=== PATIENT | female | born 1985 | race Asian ===

== ENCOUNTER 2019-12-29 12:12 | Outpatient (CLI) | payer OTHER, SELFPAY ==
[2019-12-29 13:05] LABS: Basophils Percent Auto 0.5 % (0.2-1.2); Eosinophils Absolute Auto 0.2 K/mm3 (0-0.3); Eosinophils Percent Auto 3.4 % (0-4.4); Immature Granulocyte Absolute 0.01 K/mm3 (0.00-0.031); Immature Granulocyte Percent A 0.2 % (0-0.5); Lymphocytes Absolute Auto 2.01 K/mm3 (0.9-3.2); Lymphocytes Percent Auto 32.7 % (18.3-44.2); Mean Corpuscular HGB Conc 32.5 g/dl (32-36); Mean Corpuscular Hemoglobin 29.6 pg (26-34); Mean Corpuscular Volume 91.1 fl (80-100); Mean Platelet Volume 9.5 fl (7.4-10.4); Monocytes Absolute Auto 0.3 K/mm3 (0.1-0.6); Monocytes Percent Auto 4.6 % (2.6-8.5); Neutrophils Absolute Auto 3.6 K/mm3 (1.3-6.7); Neutrophils Percent Auto 58.6 % (45.5-73.1); Platelet Count Result 238 k/mm3 (150-375); Red Blood Count 4.39 M/mm3 (4.2-5.4); Red Cell Distribution Width 12.8 % (11.5-14.5); White Blood Count 6.2 K/mm3 (4.5-10.0)
[2019-12-29 13:21] LABS: Alanine Aminotransferase 11 U/L (4-35); Alkaline Phosphatase 54 U/L (38-126); Aspartate Amino Transferase 19 U/L (14-36); Bilirubin,Total 0.2 mg/dL (0.2-1.3); Blood Urea Nitrogen 14 mg/dL (7-17); Calcium 8.5 mg/dL (8.4-10.2); Carbon Dioxide 27 mmol/L (22-30); Chloride 105 mmol/L (98-107); Estimated Glomerular Filt Rate > 60; Glucose 98 mg/dL (65-105); Potassium 3.7 mmol/L (3.4-5.0); Sodium 142 mmol/L (137-145)
[2019-12-29 13:51] LABS: Thyroid Stimulating Hormone 0.987 uIU/mL (0.465-4.680)
[2020-01-04 07:01] LABS: Vitamin D 1,25 (OH)2 Total 97 pg/mL (18-72); Vitamin D2 1,25 (OH)2 34 pg/mL; Vitamin D3 1,25 (OH)2 63 pg/mL
== END 2019-12-29 12:13 | disposition home or self-care (01) ==
PROVIDERS: PCP Family Medicine; Visit Provider Family Medicine
DX: E55.9 Vitamin D deficiency, unspecified (principal); R03.0 Elevated blood-pressure reading, without diagnosis of hypertension; K59.00 Constipation, unspecified
CPT/HCPCS: 36415; 80053; 82652; 84443; 85025

== ENCOUNTER 2020-03-29 16:38 | Outpatient (CLI) | payer OTHER, SELFPAY ==
--- NOTE | ~2020-03-29 | CT_ITS ---
EXAMINATION: CT abdomen pelvis w con INDICATION: Unspecified abdominal pain, constipation TECHNIQUE: Computed tomographic images of the abdomen and pelvis were obtained after the administrati on of 100 cc of Omnipaque 350 intravenous contrast. The dose-length product (DLP) was 440.63 mGy-cm. Automated exposure control and iterative reconstruction technique were employed. COMPARISON: None available FINDINGS: The lung bases are clear. The heart size is normal. There is a 1 cm cyst in the right hepat ic lobe. The spleen, pancreas, and adrenal glands are normal. The gallbladder is surgically absent. T here is mild enlargement of the common bile duct and central intrahepatic ducts which is likely due t o post cholecystectomy state. The right kidney is unremarkable. There is a 3 mm cyst of the left kidn ey. No pathologically enlarged abdominal or pelvic lymph nodes are identified. There is no free intra peritoneal gas or evidence of bowel obstruction. The appendix is normal. There is a greater than norm al number of fluid-filled, nondistended small bowel loops. IMPRESSION: 1. CT findings suggestive of enteritis. Reviewed, dictated and finalized at location A.
== END 2020-03-29 16:39 | disposition home or self-care (01) ==
LOC: ANHIMG 16:47
PROVIDERS: PCP Family Medicine; Visit Provider Family Medicine
DX: R10.9 Unspecified abdominal pain (principal); K59.00 Constipation, unspecified
CPT/HCPCS: 74177; Q9967

== ENCOUNTER 2020-09-05 12:13 | Outpatient (CLI) | payer OTHER, SELFPAY ==
--- NOTE | ~2020-09-05 | US_ITS ---
EXAMINATION: US pelvic complete w TV DATE: 09/05/2020 12:57 INDICATION: Pelvic pain Comparison:Ultrasound dated 05/14/2019 TECHNIQUE: Multiple transabdominal and endovaginal sonographic images of the pelvis performed. FINDINGS: The uterus measures 8.6 x 4.5 x 4.9 cm. IUD visualized in the endometrium at the fundus. Th e endometrial complex measures 5 mm. The right ovary measures 2.7 x 2.2 x 2.3 cm and the left ovary measures 2.3 x 2.1 x 1.6 cm. There ar e small follicles in each ovary. There is free fluid in the pelvis. There are no abnormal masses seen on either side. IMPRESSION: 1. Unremarkable pelvic ultrasound. Reviewed, dictated and finalized at location A.
== END 2020-09-05 12:14 | disposition home or self-care (01) ==
PROVIDERS: PCP Family Medicine; Visit Provider Obstetrics & Gynecology
DX: R10.2 Pelvic and perineal pain (principal)
CPT/HCPCS: 76830; 76856

== ENCOUNTER 2020-10-01 17:11 | Outpatient (CLI) | payer OTHER, SELFPAY ==
[2020-10-01 18:21] LABS: Thyroid Stimulating Hormone 0.771 uIU/mL (0.465-4.680)
[2020-10-05 14:21] LABS: DHEA-Sulfate 234 mcg/dL (23-266)
[2020-10-06 12:54] LABS: FSH 4.8 mIU/mL (***); LH 6.8 mIU/mL (***); Progesterone 3.8 ng/mL (***); Prolactin 5.7 ng/mL (***)
[2020-10-06 14:27] LABS: Testosterone Free 5.9 pg/mL (0.1-6.4); Testosterone Total 36 ng/dL (2-45)
[2020-10-09 19:27] LABS: Estradiol, Ultrasensitive 46 pg/mL
== END 2020-10-01 17:12 | disposition home or self-care (01) ==
LOC: ANHLAB 17:13
PROVIDERS: PCP Family Medicine; Visit Provider Obstetrics & Gynecology
DX: N92.6 Irregular menstruation, unspecified (principal)
CPT/HCPCS: 36415; 82627; 82670; 83001; 83002; 84144; 84146; 84402; 84403; 84443

== ENCOUNTER 2020-12-21 17:43 | Outpatient (CLI) | payer OTHER, SELFPAY ==
--- NOTE | ~2020-12-21 | XR_ITS ---
EXAMINATION: XR abdomen/kub 1V DATE: 12/21/2020 18:03 INDICATION: Right-sided lower abdominal pain. TECHNIQUE: A supine view of the abdomen on 2 radiographs was obtained. COMPARISON: None. FINDINGS: No dilated loops of gas-filled bowel to suggest obstruction. A few phleboliths in the pelvis. No susp icious calcifications to suggest urolithiasis. T-shaped IUD projects over the central pelvis. The IUD is oriented with the limbs on the right. Review of prior CT demonstrates the central stem of the IUD extending into the left cornua, one of the horizontal limbs positioned at the right cornua and with the second horizontal limb in the endometrial canal oriented towards the lower uterine segment. Bones are unremarkable. IMPRESSION: 1. Atypical orientation of an IUD in the pelvis as detailed above. 2. Normal bowel gas pattern. Reviewed, dictated and finalized at location A. CLERK
== END 2020-12-21 17:44 | disposition home or self-care (01) ==
PROVIDERS: PCP Family Medicine; Visit Provider Family Medicine
DX: K59.01 Slow transit constipation (principal); R10.84 Generalized abdominal pain
CPT/HCPCS: 74018

== ENCOUNTER 2022-01-07 17:32 | Outpatient (CLI) | payer OTHER, SELFPAY ==
[2022-01-07 18:16] LABS: Beta HCG Quantitative < 2.39 mIU/ML
== END 2022-01-07 17:33 | disposition home or self-care (01) ==
PROVIDERS: PCP Family Medicine; Visit Provider Obstetrics & Gynecology
DX: N92.6 Irregular menstruation, unspecified (principal)
CPT/HCPCS: 36415; 84702

== ENCOUNTER 2022-02-17 09:05 | Outpatient (CLI) | payer OTHER, SELFPAY ==
[2022-02-17 09:28] LABS: Basophils Percent Auto 0.5 % (0.2-1.2); Eosinophils Absolute Auto 0.2 K/mm3 (0-0.3); Eosinophils Percent Auto 3.1 % (0-4.4); Hematocrit 40.4 % (37.0-47.0); Hemoglobin 13.7 g/dL (12.0-15.0); Immature Granulocyte Absolute 0.02 K/mm3 (0.00-0.031); Immature Granulocyte Percent A 0.3 % (0-0.5); Lymphocytes Absolute Auto 1.57 K/mm3 (0.9-3.2); Lymphocytes Percent Auto 27.3 % (18.3-44.2); Mean Corpuscular HGB Conc 33.9 g/dl (32-36); Mean Corpuscular Hemoglobin 30.9 pg (26-34); Mean Platelet Volume 9.2 fl (7.4-10.4); Monocytes Absolute Auto 0.3 K/mm3 (0.1-0.6); Monocytes Percent Auto 4.5 % (2.6-8.5); Neutrophils Absolute Auto 3.7 K/mm3 (1.3-6.7); Neutrophils Percent Auto 64.3 % (45.5-73.1); Platelet Count Result 244 k/mm3 (150-375); Red Blood Count 4.44 M/mm3 (4.2-5.4); Red Cell Distribution Width 12.7 % (11.5-14.5); White Blood Count 5.8 K/mm3 (4.5-10.0)
[2022-02-17 09:43] LABS: Alanine Aminotransferase 20 U/L (4-35); Albumin Level 4.2 g/dL (3.5-5.1); Alkaline Phosphatase 62 U/L (38-126); Anion Gap 4 mmol/L (8-16); Aspartate Amino Transferase 24 U/L (14-36); Bilirubin,Total 0.8 mg/dL (0.2-1.3); Blood Urea Nitrogen 12 mg/dL (7-17); Calcium 8.7 mg/dL (8.4-10.2); Carbon Dioxide 30 mmol/L (22-30); Chloride 105 mmol/L (98-107); Estimated Glomerular Filt Rate > 60; Glucose 108 mg/dL (65-110); Potassium 4.1 mmol/L (3.4-5.0); Sodium 139 mmol/L (137-145)
[2022-02-17 10:04] LABS: Hemoglobin A1C 5.3 % (<5.7)
[2022-02-17 10:12] LABS: Thyroid Stimulating Hormone 0.576 uIU/mL (0.465-4.680)
[2022-02-17 11:56] LABS: Erythrocyte Sedimentation Rate 13 mm/hr (0-20)
[2022-02-19 15:47] LABS: ANA Cascade Screen Positive (Negative)
[2022-02-19 22:23] LABS: Chromatin (Nucleosomal) Ab <1.0; RNP Antibody 7.8; Sm Antibody <1.0; Sm/RNP Antibody <1.0
== END 2022-02-17 09:06 | disposition home or self-care (01) ==
PROVIDERS: PCP Family Medicine; Visit Provider Family Medicine
DX: F41.1 Generalized anxiety disorder (principal); K59.01 Slow transit constipation; Z13.1 Encounter for screening for diabetes mellitus; G44.009 Cluster headache syndrome, unspecified, not intractable
CPT/HCPCS: 36415; 80053; 83036; 84443; 85025; 85652; 86038

== ENCOUNTER 2022-05-07 09:18 | Outpatient (CLI) | payer OTHER, SELFPAY ==
--- NOTE | ~2022-05-07 | US_ITS ---
EXAMINATION: US pelvic complete w TV DATE: 05/07/2022 10:06 INDICATION: Irregular menstruation Comparison:No prior studies for comparison. TECHNIQUE: Multiple transabdominal and endovaginal sonographic images of the pelvis performed. FINDINGS: The uterus measures 8.3 x 4.7 x 4.7 cm. There is an IUD in the endometrium. Trace fluid in the endometrium. There are nabothian cysts. The endometrial complex measures 6 mm. The right ovary measures 3.8 x 2.1 x 2.3 cm and the left ovary measures 2.8 x 1.7 x 1.5 cm. There ar e small follicles in each ovary. Normal doppler signal in both ovaries. There is no free fluid in the pelvis. There are no abnormal masses seen on either side. IMPRESSION: 1. IUD in expected position in the endometrium. Trace fluid in the endometrium. Reviewed, dictated and finalized at location A.
== END 2022-05-07 09:19 | disposition home or self-care (01) ==
PROVIDERS: PCP Family Medicine; Visit Provider Obstetrics & Gynecology
DX: Z30.431 Encounter for routine checking of intrauterine contraceptive device (principal); N92.6 Irregular menstruation, unspecified
CPT/HCPCS: 76830; 76856

== ENCOUNTER 2022-07-12 08:29 | Outpatient (CLI) | payer OTHER, SELFPAY ==
--- NOTE | ~2022-07-12 | CT_ITS ---
EXAMINATION: CT brain & sinus wo con DATE: 07/12/2022 08:57 INDICATION: Headache. Family history of brain aneurysm. TECHNIQUE: Computed tomography (CT) of the head and sinuses was performed without intravenous contras t. The mA was adjusted according to patient size. Iterative reconstruction technique was employed. Th e dose-length product was 756.67 mGy-cm. COMPARISON: None FINDINGS: CT HEAD: There is no intracranial hemorrhage, acute infarction, or abnormal intracranial mass lesion. The ventricles are normal in size. The orbits are normal. The mastoid air cells are normal. CT SINUSES: There is mild medial collateral thickening in the left frontal sinuses. There is moderate thickening in the ethmoid sinuses bilaterally. There is mild mucosal thickening in left sphenoid sin us and the left maxillary sinus. Virgil cells are noted bilaterally. The ostiomeatal units are patent . There is anastacia bullosa involving the bilateral middle turbinates. There is leftward deviation of t he nasal septum. There are carious lesions of teeth 1 and 31. IMPRESSION: 1. Normal brain. 2. Mucosal thickening in the paranasal sinuses. 3. Leftward deviation of the nasal septum. 4. Dental disease. Reviewed, dictated and finalized at location A.
== END 2022-07-12 08:30 | disposition home or self-care (01) ==
PROVIDERS: PCP Family Medicine; Visit Provider Physician Assistant
DX: J32.9 Chronic sinusitis, unspecified (principal); R51.9 Headache, unspecified; K08.9 Disorder of teeth and supporting structures, unspecified
CPT/HCPCS: 70450; 70486

== ENCOUNTER 2022-08-29 00:34 | Day surgery (SDC) | payer OTHER, SELFPAY ==
[2022-08-25 17:54] VITALS: BMI 31.2
--- NOTE | 2022-08-25 18:02 | PC.NURSE ---
Report to the Outpatient Waiting Room, entrance under the green pavilion located off [facility], at time 0900 on date 08/29/22. Planned Procedure Time: 1100. Time changes happen often and if your time is changed the preop area will call you the afternoon before. - You and your visitor will be asked to self-screen and do not enter if you have any COVID symptoms. - We encourage only one visitor and NO visitors under age 16 are allowed at this time. Your visitor will receive communication by the phone number that is given day of service. - The patient visitor is requested to social distance or may leave the building when not with patient due to restrictions. - A mask is required within the hospital. Patients may have clear liquids (water, carbonated beverages, clear teas, apple juice) until 3 hours prior to surgery with a maximum of 20 ounces 0800. - No food from midnight until time of surgery - Infants may have breast milk until 4 hours before surgery, formula 6 hours prior to surgery. - Children will be allowed to drink immediately following surgery. If applicable, please bring a bottle or sippy cup to assist with drinking. Juice, water, soda, and popsicles are readily available. For infants on formula, please bring formula the day of surgery. Pacifiers are allowed. Take the following medications with a SIP of water the morning of surgery: topiramate, flonase, fluoxetine, butalbital Medications to discontinue per physician N/A Date to take last dose N/A Please no make-up, nail tanzanian, hairspray, perfume, deodorant, or body powder the day of surgery. No jewelry (including any body piercings) or valuables the day of surgery, leave them at home. Please take a shower or bath the night before, or the morning of, surgery with an antibacterial soap. Wear comfortable, loose fitting clothing. Children are encouraged to wear pajamas. - Jewelry must be removed prior to entering the operating room. Rings and piercings that are not removed may be cut off. - The hospital will not accept responsibility for valuables. - Please leave all valuables, including medications, at home the day of surgery. If you are going home after surgery, a licensed wheelchair van driver must drive you home. - NO public transportation without another adult. - We recommend that an adult stay with you for 24 hours following discharge. - We also recommend that you do not drive, make important decision, drink alcoholic beverages, or take any drugs that were not prescribed by your health care provider for at least 24 hours after your discharge time. For Pediatric surgeries, we recommend two adults accompany the child home. Follow any additional instructions given to you from your surgeon. If you or anyone in your household have experienced Covid symptoms in the past week, please notify your surgeon or the nurse liaison at the phone number below for possible testing. Telephone instructions given to Ly Villarreal and asked if any additional questions and then verbalized understanding. Patient advised to call surgeon office or pre surgery nurse liaison [phone] if any additional questions.
--- NOTE | 2022-08-28 17:13 | PM.IMHP ---
H&P: HPI History of Present Illness Date/Time: 08/28/22 17:13 Chief Complaint: Septal deviation turbinate hypertrophy nasal obstruction nasal congestion facial pain facial pressure chronic sinusitis right anastacia bullosa Narrative: planned surgical procedure Review of Systems Review of Systems: All systems reviewed & are unremarkable except as noted in HPI and below PMFSH Past Medical History Medical History Constipation Seasonal allergies Family History Family History Mother Family history of anemia Brain aneurysm Sibling Family history of anemia Social History Social History Social History: single Smoking packs per day: 0.5 Smoking cigarettes per day: 10.0 Years smoked: 12 Smoking pack-years: 6.00 Smoking status: Current every day smoker Tobacco type: cigarettes Second hand tobacco smoke exposure: No Alcohol intake: current Alcohol use details: social drinker- 3-5x year Substance use: never Substance use type: does not use Living arrangements: with family Gender identity (if verbalized by the patient): Female Sexual Orientation (if Verbalized by the Patient): Straight or Heterosexual Spiritual care concerns: No Meds Home Medications and Allergies Home Medications Medication Instructions Recorded Confirmed Type topiramate 25 mg tablet 25 mg PO BID #60 tabs 06/15/22 08/25/22 Rx butalbital 50 mg-acetaminophen 325 1 tablet PO Q6H PRN pain #30 tabs 06/27/22 08/25/22 Rx mg tablet fluticasone propionate 50 2 spray intranasal BID #16 mL 08/20/22 08/25/22 Rx mcg/actuation nasal spray,suspension (Flonase Allergy Relief) mupirocin 2 % topical ointment 1 applic topical BID #22 grams 08/20/22 08/25/22 Rx fluoxetine 10 mg tablet 20 mg PO DAILY PRN Anxiety 08/25/22 08/25/22 History Allergies Allergy/AdvReac Type Severity Reaction Status Date / Time latex Allergy Intermediate Itching Verified 08/25/22 17:48 metoclopramide Allergy Intermediate DIZZINESS,IRREGULAR Verified 08/25/22 17:48 HEART RATE promethazine AdvReac Intermediate Anxiety Verified 08/25/22 17:48 Assessment and Plan Assessment and plan (1) Nasal obstruction: Code(s): J34.89 - Other specified disorders of nose and nasal sinuses Status: Acute Assessment and Plan: plan operating room endoscopic image guided total ethmoidectomies endoscopic assisted septoplasty inferior turbinate submucosal resection with outfracture right anastacia bullosa resection risks discussed including bleeding infection damage to surrounding structures CSF leak brain damage brain change in vision blindness septal perforation failure to resolve symptoms, significant risk of failure to resolve symptoms given the patient history of headache. (2) Nasal congestion: Code(s): R09.81 - Nasal congestion Status: Acute (3) Hypertrophy of both inferior nasal turbinates: Code(s): J34.3 - Hypertrophy of nasal turbinates Status: Acute (4) Nasal septal deviation: Code(s): J34.2 - Deviated nasal septum Status: Acute (5) Anastacia bullosa: Code(s): J34.89 - Other specified disorders of nose and nasal sinuses Status: Acute (6) Chronic sinusitis: Code(s): J32.9 - Chronic sinusitis, unspecified Status: Acute (7) Headache: Code(s): R51.9 - Headache, unspecified Status: Acute
[2022-08-29] VITALS (8 sets, daily range): BP systolic 111–131; BP diastolic 71–84; PULSE 71–92; RESP 13–20; TEMP 36.5–36.8; O2SAT 98–100; BMI 31.1
--- NOTE | 2022-08-29 07:13 | WPDHPUPDATE1 ---
History and Physical Update Update Date/Time: 08/29/22 07:13 History and Physical has been reviewed, including an updated exam of the patient. There are NO changes in the patient's condition. Risks, benefits, and alternatives have been discussed and questions answered. Patient agrees to proceed with procedure.
[2022-08-29] MEDS: ACETAMINOPHEN 500 MG TABLET 1000 MG PO (09:10)
[2022-08-29] MEDS: LACTATED RINGERS 1,000 ML 30 ML IV CONT ×2 (09:25→12:41)
--- NOTE | 2022-08-29 09:39 | WPDANESEPPF ---
Anes - Initial Pre Proc Eval Procedure: Operation Date: 08/29/22 10:45 Proposed Procedures p Image Guided Total Ethmoidectomy, Bilateral Inferior Turbinectomy with Outfracture, Resection Bilateral Faby Bullosa, - Yandel Murrell MD s Endoscopic Septoplasty - Yandel Murrell MD Date/Time: 08/29/22 09:39 Surgeon: Yandel Murrell MD Pre Op Diagnosis: chronic sinusitis Patient Data Age: 36 Gender: F Height: 1.55 m Weight: 74.7 kg Last Vital Signs Temp 36.8 C 08/29/22 08:55 Pulse 90 08/29/22 08:55 Resp 14 08/29/22 08:55 BP 111/84 08/29/22 08:55 Pulse Ox 99 08/29/22 08:55 O2 Del Method Room Air 08/29/22 08:55 Allergies Allergy/AdvReac Type Severity Reaction Status Date / Time latex Allergy Intermediate Itching Verified 08/29/22 09:14 metoclopramide Allergy Intermediate DIZZINESS,IRREGULAR Verified 08/29/22 09:14 HEART RATE promethazine AdvReac Intermediate Anxiety Verified 08/29/22 09:14 Home Medications Medication Instructions Recorded Confirmed Type topiramate 25 mg tablet 25 mg PO BID #60 tabs 06/15/22 08/25/22 Rx butalbital 50 mg-acetaminophen 325 1 tablet PO Q6H PRN pain #30 tabs 06/27/22 08/25/22 Rx mg tablet fluticasone propionate 50 2 spray intranasal BID #16 mL 08/20/22 08/25/22 Rx mcg/actuation nasal spray,suspension (Flonase Allergy Relief) mupirocin 2 % topical ointment 1 applic topical BID #22 grams 08/20/22 08/25/22 Rx fluoxetine 10 mg tablet 20 mg PO DAILY PRN Anxiety 08/25/22 08/25/22 History Patient hx anesthesia problems: none Family hx anesthesia problems: none Results Review: All pre-operative results and documents have been reviewed as part of the pre-operative evaluation. [facility] Past Medical History Medical History (Updated 08/29/22 @ 09:39 by Rene Garces MD) Constipation Obesity Seasonal allergies Surgical History Surgical History (Updated 08/29/22 @ 09:39 by Rene Garces MD) History of cholecystectomy Family History Family History Mother Family history of anemia Brain aneurysm Sibling Family history of anemia Social History Social History Social History: single Smoking packs per day: 0.5 Smoking cigarettes per day: 10.0 Years smoked: 12 Smoking pack-years: 6.00 Smoking status: Current every day smoker Tobacco type: cigarettes Second hand tobacco smoke exposure: No Alcohol intake: current Alcohol use details: social drinker- 3-5x year Substance use: never Substance use type: does not use Living arrangements: with family Gender identity (if verbalized by the patient): Female Sexual Orientation (if Verbalized by the Patient): Straight or Heterosexual Spiritual care concerns: No Anes - Eval Final PreProcedure Day of Procedure 08/29/22 09:39 Patient weight: obese Lungs: clear to auscultation Airway: Mallampati scale class 1 Neurological: alert and oriented Last oral intake: >/= 8 hours ASA classification: II Emergent: no Anesthetic plan: proceed Anesthesia type and monitoring: general ETT and standard monitoring Results Review: All pre-operative results and documents have been reviewed as part of the pre-operative evaluation. Informed Consent: The patient's anesthetic plan and its attendant risks and benefits were discussed with the patient/family/POA. Questions were solicited and answers provided to the satisfaction of the patient/family/POA.
[2022-08-29] MEDS: ceFAZolin 2 GM/D5W 50 ML 2 GM/50 ML BAG IVPB (10:37)
[2022-08-29] MEDS: OXYMETAZOLINE HCL 0.05% NAS 15 ML BTL (*BKC) 1 SPRAY NASAL (10:42)
[2022-08-29] MEDS: MUPIROCIN 2% OINT 22 GM TUBE 1 APPLIC EACH NARE (12:02)
--- NOTE | 2022-08-29 12:52 | P.OP_ITS ---
Procedure Note - Detailed Date of Procedure 08/29/22 Pre-op Diagnosis chronic sinusitis Nasal obstruction nasal congestion septal deviation turbinate hypertrophy right anastacia bullosa Post-op Diagnosis Same Procedure Performed image guided bilateral endoscopic total ethmoidectomies right-sided resection of very large anastacia bullosa turbinate reduction and outfracture endoscopic assisted septoplasty Surgeon Yandel Murrell MD Anesthesia General Indications see above Findings septal deviation turbinate hypertrophy everything straightening corrected diseased polypoid mucosa in the ethmoid cells opened nicely very large right anastacia resected Description of Procedure patient identified consent verified. Patient brought operating room. Time-out performed. General anesthesia induced endotracheal tube secured. Image guidance initiated Afrin-soaked pledgets placed in bilateral nasal passages patient prepped positioned draped 2nd time-out performed. Image guided utilized throughout the case. 15 cc 1% lidocaine 1 100,000 parts epinephrine injected in the nasal septum the inferior turbinates and the right anastacia/middle turbinate. Right anastacia open using straight through cut sickle blade and microdebrider with the quad cut image guided blade. Ravi incision made left-sided nasal septum with 15 blade left nasal septal flap elevated using 7 [place] Islander suction osteotome utilized to cross over right nasal septal flap elevated. Deviated septum removed combination of osteotome mallet Robin Alarcon forceps and Maurice forceps Ravi incision closed with 3 interrupted 5 0 fast gut sutures. Inferi or turbinates reduced in the submucosal plane using microdebrider with turbinate blade. They were then outfractured using [place]. The right had so much polypoid edema that suction Bovie electrocautery at a setting of 15 was utilized on inferior polypoid portion. Total ethmoidectomies performed with image guidance from the orbit to the septum leaving skull base partitions given that there was low hanging anterior ethmoid arteries bilaterally. They were taken from the orbit to the septum all the way posterior to the posterior large ethmoid cells. The performed with microdebrider image guided [place] straight through cuts. At the end of the procedure the middle meati I suctioned packed with Nova pack. Moreno splints were placed sutured anteriorly using a 3-0 mattressed nylon suture. Blood loss 50 cc. I performed all dictated portions of the procedure. No complication. Care the patient given Anesthesiology. And to PACU. Estimated Blood Loss -50.0 Drains No Packing Yes ( Nova pack) Pathology None sent Complications No immediate complications Condition Stable Disposition PACU
[2022-08-29] MEDS: ONDANSETRON INJ 4 MG/2 ML VIAL IV PUSH (13:27)
[2022-08-29] MEDS: oxyCODONE HCL (*CRX) 5 MG TAB IR PO (13:56)
== END 2022-08-29 14:36 | disposition home or self-care (01) ==
PROVIDERS: PCP Family Medicine; Visit Provider Otolaryngology
PROC: (CPT 31255; principal; 2022-08-29 10:45)
PROC: (CPT 30520; 2022-08-29 10:45)
DX: J32.9 Chronic sinusitis, unspecified (principal); J34.89 Other specified disorders of nose and nasal sinuses; J33.8 Other polyp of sinus; J34.2 Deviated nasal septum; J34.3 Hypertrophy of nasal turbinates; R09.81 Nasal congestion; R51.9 Headache, unspecified; F17.210 Nicotine dependence, cigarettes, uncomplicated; E66.9 Obesity, unspecified; Z68.31 Body mass index [BMI] 31.0-31.9, adult
CPT/HCPCS: 31255; 31240; 61782; 30520; 30140; A9270; J0330; J0690; J1100; J1170; J2250; J2405; J2704; J3010; J7120

== ENCOUNTER 2023-02-16 17:30 | Outpatient (CLI) | payer OTHER, SELFPAY ==
--- NOTE | ~2023-02-16 | XR_ITS ---
EXAM: XR knee LT min 4V DATE: 02/16/2023 17:55 HISTORY: M25.569 - Pain in unspecified knee, no injury . COMPARISON: 07/26/2014. FINDINGS: Normal mineralization. No fracture or dislocation. No lytic or blastic lesion. Moderate me dial and mild lateral joint space narrowing. No erosion or periosteal change. Soft tissues within nor mal limits. Small joint effusion. IMPRESSION: Bicompartmental left knee osteoarthritis, moderate in the medial compartment. Reviewed, dictated and finalized at location K. IMPRESSION: Bicompartmental left knee osteoarthritis, moderate in the medial co mpartment.
== END 2023-02-16 17:31 | disposition home or self-care (01) ==
PROVIDERS: PCP Family Medicine; Visit Provider Physician Assistant
DX: M17.12 Unilateral primary osteoarthritis, left knee (principal)
CPT/HCPCS: 73564

== ENCOUNTER 2023-03-24 17:20 | Outpatient (CLI) | payer OTHER, SELFPAY ==
--- NOTE | ~2023-03-24 | XR_ITS ---
Left ankle Technique: AP, oblique, and lateral views were obtained. Clinical History: Pain Findings: No acute fracture or dislocation is seen. Osseous alignment is anatomic. Ankle mortise and other visualized joint spaces are preserved. Soft tissues are otherwise unremarkable. Impression: Unremarkable left ankle. Reviewed, dictated and finalized at location . Impression: Unremarkable left ankle.
== END 2023-03-24 17:21 | disposition home or self-care (01) ==
LOC: ANHIMG 17:21
PROVIDERS: PCP Family Medicine; Visit Provider Family Medicine
DX: M25.572 Pain in left ankle and joints of left foot (principal)
CPT/HCPCS: 73610

== ENCOUNTER 2023-06-27 13:01 | Outpatient (CLI) | payer OTHER, SELFPAY ==
[2023-06-27 13:17] LABS: Basophils Percent Auto 0.5 % (0.2-1.2); Eosinophils Absolute Auto 0.3 K/mm3 (0-0.3); Eosinophils Percent Auto 3.2 % (0-4.4); Hemoglobin 14.3 g/dL (12.0-15.0); Immature Granulocyte Absolute 0.03 K/mm3 (0.00-0.031); Immature Granulocyte Percent A 0.4 % (0-0.5); Lymphocytes Absolute Auto 2.11 K/mm3 (0.9-3.2); Lymphocytes Percent Auto 27.2 % (18.3-44.2); Mean Corpuscular Hemoglobin 31.3 pg (26-34); Mean Corpuscular Volume 91.9 fl (80-100); Mean Platelet Volume 9.2 fl (7.4-10.4); Monocytes Absolute Auto 0.4 K/mm3 (0.1-0.6); Monocytes Percent Auto 5.5 % (2.6-8.5); Neutrophils Absolute Auto 4.9 K/mm3 (1.3-6.7); Neutrophils Percent Auto 63.2 % (45.5-73.1); Platelet Count Result 261 k/mm3 (150-375); Red Blood Count 4.57 M/mm3 (4.2-5.4); Red Cell Distribution Width 12.5 % (11.5-14.5); White Blood Count 7.8 K/mm3 (4.5-10.0)
[2023-06-27 13:31] LABS: Alanine Aminotransferase 33 U/L (6-35); Albumin Level 4.3 g/dL (3.5-5.1); Alkaline Phosphatase 64 U/L (38-126); Anion Gap 7 mmol/L (8-16); Aspartate Amino Transferase 23 U/L (14-36); Bilirubin,Total 0.7 mg/dL (0.2-1.3); Blood Urea Nitrogen 11 mg/dL (7-17); Calcium 8.9 mg/dL (8.4-10.2); Carbon Dioxide 27 mmol/L (22-30); Chloride 105 mmol/L (98-107); Cholesterol 163 mg/dL (0-200); Estimated Glomerular Filt Rate > 60; Glucose 104 mg/dL (65-110); HDL Direct 32 mg/dL; Potassium 3.9 mmol/L (3.4-5.0); Sodium 139 mmol/L (137-145); Triglycerides 151 mg/dL (<150)
[2023-06-27 13:42] LABS: LDL Cholesterol Direct 103 mg/dL
[2023-06-27 13:46] LABS: Free T4 Free Thyroxine 1.26 ng/mL (0.78-2.19)
[2023-06-27 13:50] LABS: Erythrocyte Sedimentation Rate 12 mm/hr (0-20)
[2023-06-27 14:00] LABS: Thyroid Stimulating Hormone 0.816 uIU/mL (0.465-4.680); Total Triiodothyronine (T3) 1.34 NG/ML (0.97-1.69)
[2023-07-02 03:30] LABS: ANA Cascade Screen Positive (Negative)
[2023-07-02 04:21] LABS: Chromatin (Nucleosomal) Ab <1.0; Chromatin Antibody Charge YES; DNA (ds) Antibody Charge YES; RNP Antibody 7.7; RNP Antibody Charge YES; Sm Antibody <1.0; Sm Antibody Charge YES; Sm/RNP Antibody <1.0; Sm/RNP Antibody Charge YES
[2023-07-02 22:09] LABS: Anti Cyclic Citrullinated Pept <16 Units (<20)
== END 2023-06-27 13:02 | disposition home or self-care (01) ==
LOC: ANHLAB 13:03
PROVIDERS: PCP Family Medicine; Visit Provider Family Medicine
DX: F41.1 Generalized anxiety disorder (principal); G44.009 Cluster headache syndrome, unspecified, not intractable; M12.9 Arthropathy, unspecified; L40.9 Psoriasis, unspecified; Z82.61 Family history of arthritis; E78.2 Mixed hyperlipidemia
CPT/HCPCS: 36415; 80053; 80061; 84439; 84443; 84480; 85025; 85652; 86038; 86200

== ENCOUNTER 2023-07-08 11:01 | Outpatient (CLI) | payer OTHER, SELFPAY ==
--- NOTE | ~2023-07-08 | US_ITS ---
Thyroid ultrasound. Clinical History: Enlarged thyroid gland Findings: Real-time sonography of the thyroid gland was performed. The right lobe measures 5.1 x 1.4 x 1.8 cm. The left lobe measures 5.9 x 1.6 x 2.2 cm. The isthmus is 3 mm in AP diameter. There is a 1.4 x 0.8 x 1.3 cm heterogeneous ovoid nodule at the left midpole. Impression: 1.4 cm ovoid, somewhat heterogeneous nodule at the left midpole. This is most consistent with a TR-3 nodule. One-year follow-up should be considered.. Reviewed, dictated and finalized at location . Impression: 1.4 cm ovoid, somewhat heterogeneous nodule at the left midpole. This is most c onsistent with a TR-3 nodule. One-year follow-up should be considered..
== END 2023-07-08 11:02 | disposition home or self-care (01) ==
PROVIDERS: PCP Family Medicine; Visit Provider Family Medicine
DX: E04.9 Nontoxic goiter, unspecified (principal)
CPT/HCPCS: 76536

== ENCOUNTER 2023-08-04 08:14 | Outpatient (CLI) | payer OTHER, SELFPAY ==
--- NOTE | 2023-08-28 13:07 | WPDSLEEPSTUD ---
Sleep Study Date of Study: 08/04/23 Ordering Provider: Alexus Aiken MD Interpreting Physician: Mariela Roach MD Sleep Study Type: Polysomnogram Height: 1.55 m Weight: 77.111 kg Body Mass Index: 32.1 Neck Circumference (inches): 14 [place]: 11 Reason for Sleep Study Main complaint is insomnia, difficulty getting to sleep and falling asleep. Sleep History Ly Villarreal is a 37-year-old woman with a lifelong history of poor sleep. She falls asleep and wakes up in the middle of the night and then stays awake or she stays awake for quite a while before falling asleep only getting an average of 3-4 hours of sleep. She is a very light sleeper so she wakes up multiple times during the night. Neither melatonin nor Benadryl has helped her fall asleep and stay asleep. She has chronic migraines, is unable to tolerate most of the medications. She has been on Prozac but stopped it according to her office note June 19, 2023, did not think that she needs it. She occasionally awakens from sleep short of breath. She occasionally wakes at night with heartburn, belching or coughing.??She frequently snores, and frequently snores loudly enough that others complain. She never has trouble sleeping when she has a cold. She frequently wakes up gasping for breath during the night. She rarely has breathing problems at night observed by others.. She frequently sweats excessively at night. She frequently notices her heart pounding or beating irregularly during the night. She rarely falls asleep during the day. She occasionally falls asleep involuntarily, never falls asleep while driving. She never experiences loss of muscle tone with strong emotion. She occasionally has daytime difficulties due to excessive daytime sleepiness, she works as a medical office specialist. She rarely feels paralyzed on waking or falling asleep. She very often experiences vivid dreams upon waking or falling asleep. She never feels afraid of going to sleep. She frequently has nightmares. She rarely recalls her dreams. She frequently has thoughts racing through her mind. She occasionally feels sad or depressed. She frequently feels anxiety. She rarely notices parts of her body jerk. She occasional kicks during the night. She frequently feels crawling or aching feelings in her legs. She frequently feels leg pain at night. She rarely has morning jaw pain, and rarely grinds her teeth at night. She rarely feels bothered by pain during the day, occasionally is awakened by pain during the night. She frequently wakes up feeling stiff in the morning, frequently wakes feeling sore or achy in the morning. She frequently awakens with pain in her neck, spine, or joints. Normal bedtime is variable depending on the day of the week and her activities. She takes a couple of hours to fall asleep. She wakes between 4 and 6 times during the night, and during that time she may read. Sometimes she is not able to return to sleep. Her wake time is between 3 or 4:00 a.m.. On weekends she has no fixed bedtime. She may wake between 6 and 7:00 a.m.. She estimates getting between 3 and 4 hours of sleep most nights. She lives at home with her spouse, 3 children and 2 dogs. She takes naps in the afternoon or evening. A short nap lasting 10-15 minutes is not refreshing. She is usually drowsy for 2 hours or longer after waking. Habits:??Tobacco: Quit 2 months ago Caffeine: 2-3 cups per day. Alcohol: none Recreational substances: none PMFSH Past Medical History Medical History Anxiety Constipation Obesity Seasonal allergies Surgical History Surgical History H/O sinus surgery (08/09/22) History of cholecystectomy (~2012) History of colposcopy (08/18/19) Benign History of gynecological procedure (05/04/18) mirena iud insertion Family History Family History (Reviewed 1
[2023-08-28 13:13] VITALS: BMI 32.1
== END 2023-08-05 07:51 | disposition home or self-care (01) ==
LOC: ANHCSM 08:15
PROVIDERS: PCP Family Medicine; Visit Provider Family Medicine
DX: G47.10 Hypersomnia, unspecified (principal); R53.82 Chronic fatigue, unspecified; Z72.821 Inadequate sleep hygiene; R06.83 Snoring
CPT/HCPCS: 95810

== ENCOUNTER 2024-01-13 15:44 | Outpatient (CLI) | payer OTHER, SELFPAY ==
--- NOTE | ~2024-01-13 | US_ITS ---
EXAMINATION: US thyroid DATE: 01/13/2024 16:15 INDICATION: Nontoxic single thyroid nodule. TECHNIQUE: Multiple ultrasound images of the thyroid were obtained. COMPARISON: Thyroid ultrasound 07/08/2023 FINDINGS: The right thyroid lobe measures 2.0 x 4.9 x 1.3 cm. The left thyroid lobe measures 4.6 x 1.8 x 1.5 c m. In the left thyroid lobe, there is a 14 mm solid, hypoechoic, wider than tall nodule with irregul ar margin without echogenic foci (TI-RADS TR4). IMPRESSION: 1. Stable left thyroid nodule. Thyroid ultrasound is recommended in one year. Reviewed, dictated and finalized at location E. SPECIALIST
== END 2024-01-13 15:45 | disposition home or self-care (01) ==
LOC: ANHIMG 15:46
PROVIDERS: PCP Family Medicine; Visit Provider Family Medicine
DX: E04.1 Nontoxic single thyroid nodule (principal)
CPT/HCPCS: 76536

== ENCOUNTER 2024-04-26 17:32 | Outpatient (CLI) | payer OTHER, SELFPAY ==
--- NOTE | ~2024-04-26 | XR_ITS ---
EXAMINATION: XR chest 2V Exam Date/Time: 04/26/2024 17:35 CDT HISTORY: R05.9 - Cough,SOB X 2 WKS Comparison: 10/19/2019. RESULT: Lines, tubes, and devices: None. Lungs and pleura: Clear. Cardiomediastinal silhouette: Stable. Other: No acute osseous or upper abdominal finding. IMPRESSION: No acute cardiopulmonary process. Reviewed, dictated and finalized at location K.
== END 2024-04-26 17:33 | disposition home or self-care (01) ==
LOC: ANHIMG 17:34
PROVIDERS: PCP Family Medicine; Visit Provider Family Medicine
DX: R05.9 Cough, unspecified (principal); R06.02 Shortness of breath
CPT/HCPCS: 71046

== ENCOUNTER 2024-06-29 06:36 | Outpatient (CLI) | payer OTHER, SELFPAY ==
[2024-06-29 07:38] LABS: Basophils Percent Auto 0.5 % (0.2-1.2); Eosinophils Absolute Auto 0.3 K/mm3 (0-0.3); Eosinophils Percent Auto 4.4 % (0-4.4); Hemoglobin 13.5 g/dL (12.0-15.0); Immature Granulocyte Absolute 0.03 K/mm3 (0.00-0.031); Immature Granulocyte Percent A 0.5 % (0-0.5); Lymphocytes Absolute Auto 2.12 K/mm3 (0.9-3.2); Lymphocytes Percent Auto 33.2 % (18.3-44.2); Mean Corpuscular HGB Conc 32.9 g/dl (32-36); Mean Corpuscular Hemoglobin 30.5 pg (26-34); Mean Corpuscular Volume 92.8 fl (80-100); Mean Platelet Volume 9.7 fl (7.4-10.4); Monocytes Absolute Auto 0.4 K/mm3 (0.1-0.6); Monocytes Percent Auto 5.9 % (2.6-8.5); Neutrophils Absolute Auto 3.6 K/mm3 (1.3-6.7); Neutrophils Percent Auto 55.5 % (45.5-73.1); Platelet Count Result 254 k/mm3 (150-375); Red Blood Count 4.42 M/mm3 (4.2-5.4); Red Cell Distribution Width 12.2 % (11.5-14.5); White Blood Count 6.4 K/mm3 (4.5-10.0)
[2024-06-29 07:51] LABS: Alanine Aminotransferase 38 U/L (6-35); Alkaline Phosphatase 51 U/L (38-126); Anion Gap 10 mmol/L (4-12); Aspartate Amino Transferase 25 U/L (14-36); Bilirubin,Total 0.5 mg/dL (0.2-1.3); Blood Urea Nitrogen 13 mg/dL (7-17); Calcium 8.9 mg/dL (8.4-10.2); Carbon Dioxide 27 mmol/L (22-30); Chloride 104 mmol/L (98-107); Cholesterol 159 mg/dL (0-200); Estimated Glomerular Filt Rate > 60; Glucose 106 mg/dL (65-110); HDL Direct 33 mg/dL; Potassium 3.7 mmol/L (3.4-5.0); Sodium 141 mmol/L (137-145); Triglycerides 139 mg/dL (<150)
[2024-06-29 08:02] LABS: LDL Cholesterol Direct 99 mg/dL
[2024-06-29 08:20] LABS: Total Triiodothyronine (T3) 1.39 NG/ML (0.97-1.69)
[2024-06-29 09:17] LABS: Free T4 Free Thyroxine 0.93 ng/mL (0.78-2.19)
[2024-06-30 14:27] LABS: ANA Cascade Screen POSITIVE (NEGATIVE); Chromatin (Nucleosomal) Ab <1.0 NEG AI (<1.0 NEG); Chromatin Antibody Charge YES; DNA (ds) Antibody Charge YES; RNP Antibody 7.9 POS AI (<1.0 NEG); RNP Antibody Charge YES; Sm Antibody <1.0 NEG AI (<1.0 NEG); Sm Antibody Charge YES; Sm/RNP Antibody <1.0 NEG AI (<1.0 NEG); Sm/RNP Antibody Charge YES
== END 2024-06-29 06:37 | disposition home or self-care (01) ==
LOC: ANHLAB 06:38
PROVIDERS: PCP Family Medicine; Visit Provider Family Medicine
DX: E53.8 Deficiency of other specified B group vitamins (principal); R53.82 Chronic fatigue, unspecified; E04.1 Nontoxic single thyroid nodule; Z13.220 Encounter for screening for lipoid disorders; Z00.00 Encounter for general adult medical examination without abnormal findings
CPT/HCPCS: 36415; 80053; 80061; 82607; 84439; 84443; 84480; 85025; 86038; 86225; 86235; 86364

== ENCOUNTER 2024-09-07 11:28 | Outpatient (CLI) | payer OTHER, SELFPAY ==
--- NOTE | ~2024-09-07 | US_ITS ---
EXAMINATION: US thyroid DATE: 09/07/2024 12:16 INDICATION: Nontoxic single thyroid nodule. TECHNIQUE: Multiple ultrasound images of the thyroid were obtained. COMPARISON: Ultrasound 01/13/2024, 07/08/23 FINDINGS: The right thyroid lobe measures 5.0 x 1.9 x 1.4 cm. The left thyroid lobe measures 5.3 x 2.0 x 1.2 c m. In the left thyroid lobe, there is a 14 mm solid, hypoechoic, wider than tall nodule with ill-def ined margin without echogenic foci (TI-RADS TR4). IMPRESSION: 1. Thyroid nodule, stable from 07/08/2023. Thyroid ultrasound is recommended in one year. Reviewed, dictated and finalized at location B.
--- NOTE | ~2024-09-07 | MM_ITS ---
EXAMINATION: MM screening janett BI w kate HISTORY: Screening mammogram, family history of breast cancer in her mother. TECHNIQUE: Craniocaudal and mediolateral oblique 3-D tomosynthesis images were obtained and synthetic 2-D images were generated. CAD analysis was submitted and interpreted. COMPARISON: No prior mammogram is available for comparison at this institution. BREAST PARENCHYMAL COMPOSITION:Not Dense. There are scattered areas of fibroglandular density. FINDINGS: No suspicious mass, calcification, or architectural distortion are identified in either mila ast to suggest malignancy. There has been no suspicious interval change. IMPRESSION: No mammographic evidence of malignancy. Recommend routine screening mammography in one year. BI-RADS Category 1: Negative Reviewed, dictated and finalized at location .
== END 2024-09-07 11:29 | disposition home or self-care (01) ==
PROVIDERS: PCP Family Medicine; Visit Provider Family Medicine
DX: E04.1 Nontoxic single thyroid nodule (principal); Z12.31 Encounter for screening mammogram for malignant neoplasm of breast
CPT/HCPCS: 76536; 77063; 77067

== ENCOUNTER 2025-02-02 17:22 | Outpatient (CLI) | payer OTHER, SELFPAY ==
[2025-02-02 17:34] LABS: Basophils Percent Auto 0.2 % (0.2-1.2); Eosinophils Absolute Auto 0.1 K/mm3 (0-0.3); Eosinophils Percent Auto 2.5 % (0-4.4); Hematocrit 38.4 % (37.0-47.0); Hemoglobin 13.3 g/dL (12.0-15.0); Immature Granulocyte Absolute 0.01 K/mm3 (0.00-0.031); Immature Granulocyte Percent A 0.2 % (0-0.5); Lymphocytes Absolute Auto 1.85 K/mm3 (0.9-3.2); Lymphocytes Percent Auto 39.3 % (18.3-44.2); Mean Corpuscular HGB Conc 34.6 g/dl (32-36); Mean Corpuscular Hemoglobin 30.9 pg (26-34); Mean Corpuscular Volume 89.3 fl (80-100); Mean Platelet Volume 9.3 fl (7.4-10.4); Monocytes Absolute Auto 0.4 K/mm3 (0.1-0.6); Monocytes Percent Auto 8.3 % (2.6-8.5); Neutrophils Absolute Auto 2.3 K/mm3 (1.3-6.7); Neutrophils Percent Auto 49.5 % (45.5-73.1); Platelet Count Result 223 k/mm3 (150-375); Red Cell Distribution Width 12.4 % (11.5-14.5); White Blood Count 4.7 K/mm3 (4.5-10.0)
[2025-02-02 17:54] LABS: Alanine Aminotransferase 63 U/L (6-35); Albumin Level 4.3 g/dL (3.5-5.1); Alkaline Phosphatase 54 U/L (38-126); Anion Gap 9 mmol/L (4-12); Aspartate Amino Transferase 34 U/L (14-36); Bilirubin,Total 0.4 mg/dL (0.2-1.3); Blood Urea Nitrogen 12 mg/dL (7-17); Calcium 8.9 mg/dL (8.4-10.2); Carbon Dioxide 27 mmol/L (22-30); Chloride 101 mmol/L (98-107); Estimated Glomerular Filt Rate > 60; Glucose 107 mg/dL (65-110); Potassium 3.6 mmol/L (3.4-5.0); Sodium 137 mmol/L (137-145)
[2025-02-02 18:10] LABS: Free T4 Free Thyroxine 0.93 ng/dL (0.78-2.19)
== END 2025-02-02 17:23 | disposition home or self-care (01) ==
LOC: ANHLAB 17:23
PROVIDERS: PCP Family Medicine; Visit Provider Family Medicine
DX: E04.1 Nontoxic single thyroid nodule (principal); G44.019 Episodic cluster headache, not intractable
CPT/HCPCS: 36415; 80053; 84439; 84443; 85025

== ENCOUNTER 2025-02-04 10:49 | Outpatient (CLI) | payer OTHER, SELFPAY ==
--- NOTE | ~2025-02-04 | MR_ITS ---
EXAMINATION: MR brain/brain stem wo/w con DATE: 02/04/2025 12:11 INDICATION: Headache, unspecified. TECHNIQUE: Magnetic resonance imaging (MRI) of the brain and brainstem was performed without with 16 mL ProHance intravenous contrast. COMPARISON: Head CT 07/12/2022 FINDINGS: There is no intracranial hemorrhage, acute infarction, or abnormal intracranial mass lesion . There is a developmental venous anomaly in left frontal lobe. The ventricles are normal in size. Th ere is mild mucosal thickening in the ethmoid sinuses. The orbits are normal. The mastoid air cells a re normal. IMPRESSION: 1. Normal brain. Reviewed, dictated and finalized at location A. IMPRESSION: 1. Normal brain.
== END 2025-02-04 10:50 | disposition home or self-care (01) ==
PROVIDERS: PCP Family Medicine; Visit Provider Family Medicine
DX: R51.9 Headache, unspecified (principal); Z82.49 Family history of ischemic heart disease and other diseases of the circulatory system
CPT/HCPCS: 70553; A9579

== ENCOUNTER 2025-06-10 07:29 | Outpatient (CLI) | payer OTHER, SELFPAY ==
--- NOTE | ~2025-06-10 | US_ITS ---
Limited Abdominal Sonogram: Real-time sonographic imaging of the right upper quadrant was performed. Clinical History: Abnormal liver enzyme levels Findings: The liver appears echogenic, with no evidence of mass lesion or bile duct dilatation. Main portal vein demonstrates normal direction of flow. The gallbladder is absent, compatible prior abiodun cystectomy. The common bile duct measures 6 mm. The visualized pancreas, aorta, and IVC are unremark able. Impression: Diffuse fatty infiltration of liver. Status post cholecystectomy. Reviewed, dictated and finalized at location . Impression: Diffuse fatty infiltration of liver. Status post cholecystectomy.
== END 2025-06-10 07:30 | disposition home or self-care (01) ==
LOC: MICIMG 07:30
PROVIDERS: PCP Family Medicine; Visit Provider Family Medicine
DX: R74.01 Elevation of levels of liver transaminase levels (principal); K76.0 Fatty (change of) liver, not elsewhere classified; Z90.49 Acquired absence of other specified parts of digestive tract
CPT/HCPCS: 76705

== ENCOUNTER 2025-09-11 07:04 | Outpatient (CLI) | payer OTHER, SELFPAY ==
--- NOTE | ~2025-09-11 | US_ITS ---
Clinical history:Nontoxic single thyroid nodule EXAM:Ultrasound thyroid TECHNIQUE:Multiple static grayscale images and color Doppler images were obtained of the thyroid gland. Comparisons:Ultrasound thyroid 09/07/2020 03/04/2024 07/08/2023 FINDINGS: Right thyroid lobe measures 3.4 x 1.4 x 1.8 cm. Left thyroid lobe measures 5.0 x 1.7 x 1.3 cm. Isthmus measures 0.3 cm. There is a 0.5 x 0.8 x 1.4 cm hypoechoic cystic and solid nodule in the left thyroid lobe. TR 4. The finding is 07/08/2023. IMPRESSION: 1.There is a 1.4 cm hypoechoic cystic and solid nodule in the left thyroid lobe. TR 4. The finding is 07/08/2023. A follow-up thyroid ultrasound in 6 months is recommended. 2. No new thyroid nodules identified. Reviewed, dictated and finalized at location Q. HT TEST ENGINEER IMPRESSION: 1.There is a 1.4 cm hypoechoic cystic and solid nodule in the left thyroid lobe . TR 4. The finding is 07/08/2023. A follow-up thyroid ultrasound in 6 months is recommended. 2. No new thyroid nodules identified.
== END 2025-09-11 07:05 | disposition home or self-care (01) ==
PROVIDERS: PCP Family Medicine; Visit Provider Family Medicine
DX: E04.1 Nontoxic single thyroid nodule (principal)
CPT/HCPCS: 76536

== ENCOUNTER 2025-09-18 07:56 | Outpatient (CLI) | payer OTHER, SELFPAY ==
--- NOTE | ~2025-09-18 | MM_ITS ---
EXAMINATION: MM screening janett BI w kate HISTORY: Screening TECHNIQUE: Craniocaudal and mediolateral oblique 3-D tomosynthesis images were obtained and synthetic 2-D images were generated. CAD analysis was submitted and interpreted. COMPARISON: 09/07/2024 BREAST PARENCHYMAL COMPOSITION: Not dense: There are scattered areas of fibroglandular density. FINDINGS: There is no evidence of suspicious mass, calcification, or architectural distortion to suggest malignancy in either breast. There has been no suspicious interval change. IMPRESSION: 1. No mammographic evidence of malignancy. 2. Recommend routine screening mammography in one year. BI-RADS Category 1: Negative Reviewed, dictated and finalized at location B. CAL INSURANCE CLERK
== END 2025-09-18 07:57 | disposition home or self-care (01) ==
PROVIDERS: PCP Family Medicine; Visit Provider Obstetrics & Gynecology
DX: Z12.31 Encounter for screening mammogram for malignant neoplasm of breast (principal)
CPT/HCPCS: 77063; 77067